=== PATIENT | male | born 1990 | race Hispanic/Latino ===

== ENCOUNTER 2018-03-05 10:40 | Emergency (ER) | payer BC, OTHER ==
[2018-03-05] MEDS ORDERED: Adacel (T-DAP) 0.5 ML VIAL ONE (11:08)
[2018-03-05] MEDS ORDERED: Ketorolac Tromethamine 30 MG/ML VIAL ONE (11:08)
[2018-03-05] MEDS ORDERED: Silver Sulfadiazine 1% Cream 50 GM JAR ONE (11:09)
== END 2018-03-05 11:40 | disposition home or self-care (01) ==
LOC: SCSER 10:40
DX: T23.101A Burn of first degree of right hand, unspecified site, initial encounter (principal); Z23 Encounter for immunization; X19.XXXA Contact with other heat and hot substances, initial encounter; Y99.0 Civilian activity done for income or pay
CPT/HCPCS: 16000; 90471; 90715; 96372; J1885